=== PATIENT | male | born 1965 | race African-American/Black ===

== ENCOUNTER 2017-08-20 13:41 | Emergency (ER) | payer OTHER, SELFPAY ==
[2017-08-20] MEDS ORDERED: HYDROcodone/Acetaminophen 10/325 mg Tablet ONE (14:02)
[2017-08-20] MEDS ORDERED: predniSONE 20 MG TAB ONE (14:02)
== END 2017-08-20 14:23 | disposition home or self-care (01) ==
LOC: BURERS 13:41
DX: M16.12 Unilateral primary osteoarthritis, left hip (principal); G89.29 Other chronic pain
CPT/HCPCS: 99283; J7506